=== PATIENT | female | born 2000 | race Caucasian/White ===

== ENCOUNTER 2022-03-30 20:02 | Emergency (ER) | payer OTHER, SELFPAY ==
[2022-03-30 20:02] VITALS: BP 123/78; PULSE 96; RESP 15; TEMP 36.7; O2SAT 100; BMI 20.8
[2022-03-30 20:20] LABS: Absolute Lymphocyte Count 2.17 X10^3/uL (0.83-4.51); Absolute Neutrophil Count 8.6 X10^3/uL (2.0-7.7); Basophil# 0.06 X10^3/uL; Basophil% 0.5 % (0-1); Eosinophil# 0.15 X10^3/uL; Eosinophils% 1.2 % (0-5); Hematocrit 36.8 % (37-47); Hemoglobin 11.3 g/dL (12.0-15.0); Lymphocyte # 2.17 X10^3/ul (0.83-4.51); Lymphocyte % 17.2 % (19-41); Mean Corp Hgb Conc 30.7 g/dL (32-36); Mean Corpuscular Hgb 21.3 pg (27.0-32.0); Mean Corpuscular Volume 69.3 fL (81-99); Mean Platelet Vol. 9.3 fl (6.2-12.0); Monocyte# 1.57 X10^3/uL; Monocyte% 12.5 % (0-10); NRBC Flagged by Analyzer 0 % (0-5); Neutrophil # 8.63 X10^3/uL (2.7-7.7); Neutrophil % 68.4 % (47-70); POSITIVE DIFFERENTIAL YES; Platelet Count 433 K/mm3 (150-450); RBC Distribution Width CV 17.8 % (11.6-14.6); Red Blood Count 5.31 M/mm3 (4.2-5.4); White Blood Count 12.6 K/mm3 (4.4-11.0)
[2022-03-30 20:22] LABS: Differential Indicated SCAN CRITERIA MET
[2022-03-30 20:30] LABS: Internal QC Validated? YES +Cl - CLEAR BKGD; Pregnancy, Serum, hCG Quali. NEGATIVE Negative
[2022-03-30 20:33] LABS: Anion Gap 6 (5-15); BUN 10 mg/dL (7-18); BUN/Creat Ratio 11.9 RATIO (10-20); Calcium,Total 9.4 mg/dL (8.5-10.1); Chloride 104 mmol/L (98-107); Creatinine, Serum 0.84 mg/dL (0.55-1.02); EST Glomerular Filtration Rate 92 mL/min (>60); Est Glom Filt Rate - Afr Amer 112 mL/min (>60); Estimated Creatinine Clearance 93.02 ml/min; Glucose 96 mg/dL (74-106); Sodium Level 137 mmol/L (136-145)
[2022-03-30 20:46] LABS: Differential Comment SCANNED
[2022-03-30 21:32] LABS: Mucous, Urine 0 SEEN /hpf (<or=2+); Red Blood Cells-Urine 0 SEEN /hpf (0-5)
[2022-03-30 21:39] LABS: Color, Urine Yellow (Yellow); Glucose, Dipstick Normal (Normal); Ketone-Dipstick Negative (Negative); Leukocyte Esterase-Dipstick 100 /ul (Negative); Nitrite-Dipstick Negative (Negative); Occult Blood-Urine 10 /ul (Negative); Protein-Dipstick 15 mg/dl (Negative); Specific Gravity, Urine 1.025 (1.002-1.030); Urine Bilirubin Dipstick Negative (Negative); Urine Clarity Clear (Clear); Urine Urobilinogen Normal (Normal)
--- NOTE | 2022-03-30 21:40 | EDS_ITS ---
HPI HPI - GI History of Present Illness Chief Complaint: Abd Pain Narrative Narrative: 21-year-old female presenting with right lower quadrant abdominal pain. She states her pain initially started on Tuesday as a dull mild ache. It is progressively gotten worse. She was able to work last night but states it was very painful. She states today she is not had a fever but she has had chills throughout the day. She has nausea without vomiting. She admits to diarrhea. No urinary or vaginal complaints. Patient states she has no medical problems. She is not on any long-term medications. She does not have any medication allergies. PFSH PFSH Medical History no medical history Home Medications amoxicillin 875 mg-potassium clavulanate 125 mg tablet 1 tab PO BID #28 tabs 03/30/22 [Rx Last Taken Unknown] ondansetron 4 mg disintegrating tablet 4 mg PO Q8H PRN nausea and vomiting #10 tabs 03/30/22 [Rx Last Taken Unknown] Allergy/AdvReac Type Severity Reaction Status Date / Time No Known Allergies Allergy Verified 03/30/22 20:05 Social History Smoking Status: Never smoker ROS ROS ED Constitutional Constitutional ED: Reports chills; Denies fever(s) or sweats Eyes Eyes: Denies blurry vision or change in vision ENT ENT ED: Denies ear pain or sore throat Cardiovascular Cardiovascular: Denies chest pain, palpitations or racing heartbeat Respiratory/Chest Respiratory/Chest: Denies cough, dyspnea or sputum Gastrointestinal Gastrointestinal: Reports abdominal pain, diarrhea and nausea; Denies constipation or vomiting Genitourinary Genitourinary ED: Denies dysuria, hematuria or urinary frequency Musculoskeletal Musculoskeletal: Denies arthralgias, myalgias or neck pain Integumentary Denies abscess, Abrasions or rash Neurologic Neurologic: Denies headache(s), paresthesias or weakness Psychiatric Psychiatric: Denies anxiety, depression, suicidal ideation or suicidal thoughts Endocrine Endocrinology: Denies polydipsia or polyuria EXAM Physical Exam Const Vital Signs: 03/30/22 20:02 03/30/22 22:32 Temperature 98.0 F Temperature Source Temporal Pulse Rate 96 Respiratory Rate 15 Blood Pressure 123/78 H 124/78 H Blood Pressure Mean 93 93 Pulse Ox 100 Oxygen Delivery Method Room Air Positive well nourished General Appearance ED: NAD; Negative for pallor HEENT Reports moist mucous membranes normocephalic and atraumatic Eyes PERRL and EOMs intact bilaterally Neck no lymphadenopathy Resp normal respiratory effort and clear to auscultation bilaterally Cardio regular rate and regular rhythm GI Palpation: tender RLQ Neuro CN's II-XII intact bilaterally Psych mental status grossly normal and thought process normal Skin General Skin Exam: Negative for jaundice or pallor MDM MDM MDM Narrative Medical decision making narrative: Patient presenting with right lower quadrant abdominal pain. She is tender over McBurney's point. She reports 3 days of pain progressively worse. Is now localizing to the right lower quadrant. She has had a fever but admits to chills. She has nausea without vomiting. CBC with differential was obtained to assess for infectious etiology. She does have a leukocytosis of 12.6 without a left shift. Hemoglobin is 11.3. Platelets normal at 433. BMP obtained to assess electrolyte and renal function needs to appear to be normal. Urinalysis appears to be normal. Serum hCG is negative. Given her elevated white blood cell count and right lower quadrant pain I will obtain a CT of the abdomen pelvis with IV contrast. This does show acute uncomplicated diverticulitis in the ascending colon. The CT was reviewed with general surgery and they agree this is not appendicitis. Patient was started on Augmentin and Zofran. She had a prescription filled he [facility] and she will take her first dose of Augmentin for she goes home. Given follow-up with Dr. Alvarez. Impression: 1. Nausea/vomiting 2. Leukocytosis 3. Acute diverticulitis Lab Data Labs: Laboratory Results - last 24 hr 03/30/22 03/30/22 03/30/22 20:15 20:15 20:15 WBC 12.6 H RBC 5.31 Hgb 11.3 L Hct 36.8 L MCV 69.3 L MCH 21.3 L MCHC 30.7 L RDW Std Deviation 43.0 RDW Coeff of Caren 17.8 H Plt Count 433 MPV 9.3 Immature Gran % (Auto) 0.200 Neut % (Auto) 68.4 Lymph % (Auto) 17.2 L [place] % (Auto) 12.5 H Eos % (Auto) 1.2 Baso % (Auto) 0.5 Absolute Neuts (auto) 8.6 H Absolute Lymphs (auto) 2.17 Nucleated RBC % 0 Differential Comment SCANNED Diff Path Review May foll Sodium 137 Potassium 4.0 Chloride 104 Carbon Dioxide 27.0 Anion Gap 6 BUN 10 Creatinine 0.84 Estim Creat Clear Calc 93.02 Est GFR (MDRD) Af Amer 112 Est GFR (MDRD) Non-Af 92 BUN/Creatinine Ratio 11.9 Glucose 96 Calcium 9.4 Serum , Qual NEGATIVE Urine Color Urine Clarity Urine pH Ur Specific [place] Urine Protein Urine Glucose (UA) Urine Ketones Urine Occult Blood Urine Nitrite Urine Bilirubin Urine Urobilinogen Ur Leukocyte Esterase Urine RBC Urine WBC Ur Squamous Epith Cells Urine Bacteria Urine Mucus 03/30/22 21:25 WBC RBC Hgb Hct MCV MCH MCHC RDW Std Deviation RDW Coeff of Caren Plt Count MPV Immature Gran % (Auto) Neut % (Auto) Lymph % (Auto) [place] % (Auto) Eos % (Auto) Baso % (Auto) Absolute Neuts (auto) Absolute Lymphs (auto) Nucleated RBC % Differential Comment Diff Path Review Sodium Potassium Chloride Carbon Dioxide Anion Gap BUN Creatinine Estim Creat Clear Calc Est GFR (MDRD) Af Amer Est GFR (MDRD) Non-Af BUN/Creatinine Ratio Glucose Calcium Serum , Qual Urine Color Yellow Urine Clarity Clear Urine pH 5.0 Ur Specific [place] 1.025 Urine Protein 15 H Urine Glucose (UA) Normal Urine Ketones Negative Urine Occult Blood 10 H Urine Nitrite Negative Urine Bilirubin Negative Urine Urobilinogen Normal Ur Leukocyte Esterase 100 H Urine RBC 0 SEEN Urine WBC 0-5 SEEN Ur Squamous Epith Cells 0-5 SEEN Urine Bacteria RARE Urine Mucus 0 SEEN Radiography Diagnostic Testing: Clinical Impression(s) from Imaging Studies Abdomen/Pelvis CT 03/30/22 22:06 IMPRESSION: Acute diverticulitis of the ascending colon. No evidence of perforation. Electronically Signed: Virgil Schneider MD at 22:47 EST , Discharge Plan Triage Chief Complaint: Abd Pain ED Provider: Mathew Day Dx/Rx/DC Orders Instructions: ED Diverticulitis Prescriptions: New amoxicillin-pot clavulanate 875-125 mg tablet 1 tab PO BID Qty: 28 0RF ondansetron 4 mg tablet,disintegrating 4 mg PO Q8H PRN (Reason: nausea and vomiting) Qty: 10 0RF Primary Care Provider: Jerad Valdez Referrals: Jerad Valdez DO [Primary Care Provider] - Friend,DO Chaim [Med Staff - Active Staff] - 3-5 Days Disposition Disposition: Home, Self Care
--- NOTE | 2022-03-30 22:06 | CT_ITS ---
INDICATION: abd pain EXAMINATION: CT ABDOMEN AND PELVIS WITH CONTRAST - CT Abdomen And Pelvis W/ Contrast Injection TECHNIQUE: Helically acquired images were obtained of the abdomen and pelvis following IV contrast. A radiation dose optimization technique was used for this scan. IV Contrast dosage and agent: 75 cc Isovue-370 Oral contrast: None. COMPARISON: None. FINDINGS: LOWER CHEST: Lung bases are clear. No cardiomegaly or pericardial effusion. LIVER: Homogeneous. No focal mass. GALLBLADDER AND BILIARY TREE: No calcified gallstones. Gallbladder contracted. No intra- or extrahepatic biliary ductal dilation. PANCREAS: No focal cystic or solid mass. SPLEEN: Normal size without focal cystic or solid mass. ADRENAL GLANDS: No nodules. KIDNEYS AND URETERS: Normal renal size and position. No hydronephrosis. PERITONEUM: No free air. Small amount of pelvic ascites. BOWEL: Normal appendix. No stomach or bowel distension. Retained radiodense material in a single diverticulum in the ascending colon with adjacent bowel wall thickening and inflammatory stranding. LYMPH NODES: No enlarged mesenteric or retroperitoneal lymph nodes. VESSELS: Aorta is non-dilated. URINARY BLADDER: Unremarkable. REPRODUCTIVE ORGANS: No pelvic masses. ABDOMINAL WALL: Fat-containing umbilical hernia. BONES: Unremarkable. CT/Abdomen/Pelvis W IV Cont ONLY IMPRESSION: Acute diverticulitis of the ascending colon. No evidence of perforation. Electronically Signed: Virgil Schneider MD at 22:47 EST ,
[2022-03-30 22:21] LABS: Squamous Epithelial Cells - UA 0-5 SEEN /hpf (5-10); White Blood Cells 0-5 SEEN /hpf (0-5)
[2022-03-30 22:22] LABS: Bacteria RARE /hpf (None Seen)
[2022-03-30] MEDS: Morphine 4 MG/ML Syringe IV (22:24)
[2022-03-30] MEDS: Ondansetron 4 MG/2 ML Vial IV (22:24)
[2022-03-30] MEDS: 0.9% Normal Saline 1,000 ML 999 ML IV (22:24)
[2022-03-30 22:32] VITALS: BP 124/78
[2022-04-01 09:24] LABS: Pathologist Review Reviewed
== END 2022-03-30 23:36 | disposition home or self-care (01) ==
PROVIDERS: Emergency Provider Student in an Organized Health Care Education/Training Program; PCP Pediatrics; Visit Provider Student in an Organized Health Care Education/Training Program
DX: K57.32 Diverticulitis of large intestine without perforation or abscess without bleeding (principal); D72.829 Elevated white blood cell count, unspecified; R11.2 Nausea with vomiting, unspecified
CPT/HCPCS: 74177; 80048; 81001; 84703; 85025; 96374; 96375; 99283; J7030; Q9967; J2405

== ENCOUNTER 2022-08-28 08:41 | Emergency (ER) | payer OTHER, SELFPAY ==
[2022-08-28 08:43] VITALS: BP 110/77; PULSE 111; RESP 18; TEMP 37.7; O2SAT 97; BMI 21.7
--- NOTE | 2022-08-28 08:50 | CT_ITS ---
STUDY: CT SOFT TISSUE NECK WITH CONTRAST REASON FOR EXAM: Female, 21 years old. throat pain, ro abscess RADIATION DOSAGE (If Supplied By Facility): CTDIvol = ( 10.61 ) mGy, DLP = ( 302.07 ) mGycm TECHNIQUE: The patient was scanned in a multi-detector CT scanner. High resolution transaxial imaging was performed following intravenous administration of IV 75mL Isovue-370. Sagittal and coronal images were reconstructed. Individualized dose optimization techniques were used for this CT. COMPARISON: None. FINDINGS: Normal bilateral parotid glands. Normal bilateral collarette separator spaces. Normal bilateral parapharyngeal spaces. Normal bilateral carotid spaces. Normal bilateral sublingual and submandibular glands and spaces. Normal visualized nasopharynx. Normal retropharyngeal space. Normal perivertebral space. Prominent lingual tonsils of the which are of heterogeneous decreased attenuation suggestive of tonsillitis. No definite loculated fluid collection to suggest peritonsillar abscess. The visualized tongue, tongue base and oropharynx are normal. Bilateral jugular lymphadenopathy at the level of the floor the mouth measuring 1.2 x 2.0 cm in the right and 1.5 x 2.2 cm on the left which is likely reactive. There is no demonstrated solid or cystic mass lesion. There is no abnormal contrast enhancement. Normal epiglottis, bilateral vallecula and hypopharynx. The pre-epiglottic and paraglottic adipose spaces are normal. Normal visualized bilateral piriform sinuses, aryepiglottic folds, vocal cords, and arytenoid-cricoid articulations. Normal subglottic trachea. Normal bilateral lobes of the thyroid gland. Normal visualized pulmonary apices. Normal visualized paranasal sinuses. Normal visualized cervical spine. CT/Soft Tissue Neck WITH Contrast IMPRESSION: Bilateral tonsillitis without definite peritonsillar abscess. Bilateral reactive jugular lymphadenopathy. Electronically Signed: Herman Main MD at 9:49 EDT ,
--- NOTE | 2022-08-28 08:52 | EX.ED.VIS.UR ---
HPI HPI - URI History of Present Illness Chief Complaint: Sore Throat Detail of Chief Complaint: Sore throat x3 days Informant: patient and parent Narrative Narrative: Patient presents with sore throat x3 days. She had a fever at home. Patient was seen at urgent care 3 days ago and had negative COVID and negative strep testing. Patient went back to urgent care today and had another strep screen that was negative. There was concern about the large tonsils and wanted patient evaluated the emergency department to rule out abscess. Patient complains of painful swallowing. She describes some mild ear pain bilaterally. Minimal cough. Patient denies sick contacts. ROS ROS ED Review of Systems ROS Unobtainable: other Constitutional Constitutional ED: Reports fever(s) and lethargy; Denies chills, sweats or weight loss Eyes Eyes: Denies blurry vision, change in vision or diplopia ENT ENT ED: Reports ear pain and sore throat; Denies rhinorrhea Cardiovascular Cardiovascular: Denies chest pain, orthopnea or racing heartbeat Respiratory/Chest Respiratory/Chest: Denies cough, dyspnea, dyspnea on exertion, orthopnea or sputum Gastrointestinal Gastrointestinal: Denies abdominal pain, diarrhea, nausea or vomiting Genitourinary Genitourinary ED: Denies dysuria, hematuria or urinary frequency Musculoskeletal Musculoskeletal: Denies arthralgias, back pain, myalgias or neck pain Integumentary Denies abscess, Abrasions or rash Neurologic Neurologic: Denies headache(s) or weakness Psychiatric Psychiatric: Denies anxiety, depression or suicidal thoughts Endocrine Endocrinology: Denies polydipsia, polyphagia or polyuria Hematologic/Lymphatic Hematologic/Lymphatic: Denies easy bleeding, easy bruising or lymphadenopathy Allergic/Immunologic Allergic/Immunologic ED: Denies mouth swelling, tongue swelling or urticaria PFSH PFSH Medical History no medical history Home Medications clindamycin HCl 300 mg capsule (Cleocin HCl) 300 mg PO Q6H #40 CAPSULES 08/28/22 [Rx Last Taken Unknown] Allergy/AdvReac Type Severity Reaction Status Date / Time No Known Allergies Allergy Verified 08/28/22 08:44 Surgical History no surgical history Social History Smoking Status: Never smoker EXAM Physical Exam Const Vital Signs: 08/28/22 08:43 08/28/22 10:07 Temperature 99.9 F H 98.0 F Temperature Source Oral Temporal Pulse Rate 111 H 100 Respiratory Rate 18 18 Blood Pressure 110/77 103/56 L Blood Pressure Mean 88 71 Pulse Ox 97 100 Oxygen Delivery Method Room Air Room Air Positive well nourished and well developed General Appearance ED: well developed and NAD HEENT Reports TM's clear and moist mucous membranes HEENT Narrative: Patient has diffuse pharyngeal erythema with enlarged tonsils with exudates bilaterally left tonsil larger than right. Uvula appears to be in the midline. No trismus on exam. Patient has some mild posterior adenopathy. normocephalic and atraumatic; Negative for trauma or tenderness Tympanic Membrane ED: Yes TM's clear Eyes PERRL and EOMs intact bilaterally General Eye ED: Negative for pale conjunctiva or scleral icterus Neck no lymphadenopathy, supple and no JVD General: Negative for tenderness Chest Wall inspection of chest normal and palpation of chest normal Chest: Negative for tenderness Resp normal respiratory effort and clear to auscultation bilaterally Effort and Inspection: Negative for respiratory distress or pain with movement Auscultation: Negative for rhonchi, wheezes or diminished lung sounds Cardio regular rate, regular rhythm, S1 normal heart sound, S2 normal heart sound and no murmurs Peripheral Pulses: pulses 2+ throughout GI normal to inspection, nondistended, normoactive bowel sounds, soft to palpation, non-tender, non-distended and no masses Back/Spine no CVA tenderness and no thoracic nor lumbar tenderness Extremity normal to inspection General Extremety ED: Negative for edema General Extremity: Negative for edema Neuro oriented x3, CN's II-XII intact bilaterally, no sensory deficits noted and gait normal Sensorium / Orientation: awake, alert, oriented to person, oriented to place and oriented to time Motor Exam: strength 5/5 throughout and strength abnormal Psych mental status grossly normal Skin no rashes or lesions noted and no wounds MDM MDM MDM Narrative Medical decision making narrative: Patient presents with significant tonsillitis with symptoms x3 days. She has been seen in urgent care twice now and has had 2 negative strep screens and a negative COVID test. Patient with fever. In the differential would be mono versus peritonsillar abscess versus retropharyngeal abscess. Clinically she does not have trismus and she is able to swallow her own secretions. IV line established. CBC with differential obtained showed a white count of 17.8 with a hemoglobin 11.5 and platelet count of 240. Chemistries unremarkable. Monotest was negative. I did send off a throat culture. Patient was given clindamycin 600 mg IV. I did obtain a CT scan of the soft tissue neck with IV contrast that showed evidence of tonsillitis and reactive lymphadenopathy but no evidence of abscess. Patient will be referred to ENT for follow-up. I will start her on clindamycin. Advised to return if difficulty swallowing or condition worsen anyway. Patient to use ibuprofen for discomfort. I did explain to them that this could still be mono although she is only had symptoms for 3 days mono may not turn positive for over a week. Lab Data Labs: Laboratory Results - last 24 hr 08/28/22 08/28/22 08/28/22 09:05 09:05 09:05 WBC 17.8 H RBC 4.45 Hgb 11.5 L Hct 36.9 L MCV 82.9 MCH 25.8 L MCHC 31.2 L RDW Std Deviation 44.8 H RDW Coeff of Caren 15.0 H Plt Count 240 MPV 9.3 Immature Gran % (Auto) 1.000 H Neut % (Auto) 78.2 H Lymph % (Auto) 6.4 L [place] % (Auto) 13.1 H Eos % (Auto) 0.8 Baso % (Auto) 0.5 Absolute Neuts (auto) 13.9 H Absolute Lymphs (auto) 1.13 Nucleated RBC % 0 Differential Comment SCANNED Diff Path Review May foll Sodium 137 Potassium 3.9 Chloride 106 Carbon Dioxide 27.0 Anion Gap 4 L BUN 9 Creatinine 0.69 Estim Creat Clear Calc 113.24 Est GFR (MDRD) Af Amer 139 Est GFR (MDRD) Non-Af 115 BUN/Creatinine Ratio 13.0 Glucose 100 Calcium 8.8 Monoscreen Negative Radiography Diagnostic Testing: Clinical Impression(s) from Imaging Studies Soft Tissue Neck CT 08/28/22 08:50 IMPRESSION: Bilateral tonsillitis without definite peritonsillar abscess. Bilateral reactive jugular lymphadenopathy. Electronically Signed: Herman Main MD at 9:49 EDT , Discharge Plan Triage Chief Complaint: Sore Throat ED Provider: Ungur,Remus Dx/Rx/DC Orders Clinical Impression: Acute tonsillitis Instructions: ED Tonsillitis Prescriptions: New clindamycin HCl [Cleocin HCl] 300 mg capsule 300 mg PO Q6H Qty: 40 0RF Primary Care Provider: Jerad Valdez Referrals: Jerad Valdez DO [Primary Care Provider] - Toby Stanley MD [Med Staff - Active Staff] - 5-7 Days Disposition Disposition: Home, Self Care
[2022-08-28] MEDS: 0.9% Normal Saline 1,000 ML 1000 ML IV (09:09)
[2022-08-28] MEDS: Ketorolac 30 MG/ML Syringe IV (09:09)
[2022-08-28] MEDS: dexAMETHasone 10 MG/ML Vial IV (09:10)
[2022-08-28 09:16] LABS: Absolute Lymphocyte Count 1.13 X10^3/uL (0.83-4.51); Absolute Neutrophil Count 13.9 X10^3/uL (2.0-7.7); Basophil# 0.08 X10^3/uL; Basophil% 0.5 % (0-1); Eosinophil# 0.14 X10^3/uL; Eosinophils% 0.8 % (0-5); Hematocrit 36.9 % (37-47); Hemoglobin 11.5 g/dL (12.0-15.0); Lymphocyte # 1.13 X10^3/ul (0.83-4.51); Lymphocyte % 6.4 % (19-41); Mean Corp Hgb Conc 31.2 g/dL (32-36); Mean Corpuscular Hgb 25.8 pg (27.0-32.0); Mean Corpuscular Volume 82.9 fL (81-99); Mean Platelet Vol. 9.3 fl (6.2-12.0); Monocyte# 2.33 X10^3/uL; Monocyte% 13.1 % (0-10); NRBC Flagged by Analyzer 0 % (0-5); Neutrophil # 13.91 X10^3/uL (2.7-7.7); Neutrophil % 78.2 % (47-70); POSITIVE DIFFERENTIAL YES; Platelet Count 240 K/mm3 (150-450); RBC Distribution Width SD 44.8 fl (35.1-43.9); Red Blood Count 4.45 M/mm3 (4.2-5.4); White Blood Count 17.8 K/mm3 (4.4-11.0)
[2022-08-28 09:24] LABS: Anion Gap 4 (5-15); BUN 9 mg/dL (7-18); Calcium,Total 8.8 mg/dL (8.5-10.1); Chloride 106 mmol/L (98-107); Creatinine, Serum 0.69 mg/dL (0.55-1.02); EST Glomerular Filtration Rate 115 mL/min (>60); Est Glom Filt Rate - Afr Amer 139 mL/min (>60); Estimated Creatinine Clearance 113.24 ml/min; Glucose 100 mg/dL (74-106); Potassium 3.9 mmol/L (3.5-5.1); Sodium Level 137 mmol/L (136-145)
[2022-08-28 09:26] LABS: Differential Indicated SCAN CRITERIA MET
[2022-08-28 09:39] LABS: Internal QC Validated? YES +Cl - CLEAR BKGD; Monotest Negative (Negative)
[2022-08-28 09:54] LABS: Differential Comment SCANNED
[2022-08-28 10:07] VITALS: BP 103/56; PULSE 100; RESP 18; TEMP 36.7; O2SAT 100
[2022-08-28] MEDS: Clindamycin 600 MG/50 ML BAG 100 MG IV (10:51)
[2022-08-28 11:19] VITALS: BP 111/66; PULSE 107; RESP 16; O2SAT 99
[2022-08-28 11:38] VITALS: BP 118/68; PULSE 95; RESP 18; O2SAT 96
[2022-08-30 12:45] LABS: Pathologist Review Reviewed
== END 2022-08-28 11:41 | disposition home or self-care (01) ==
PROVIDERS: Emergency Provider Emergency Medicine; PCP Pediatrics; Visit Provider Emergency Medicine
DX: J03.90 Acute tonsillitis, unspecified (principal)
CPT/HCPCS: 70491; 80048; 85025; 86308; 87070; 87077; 96361; 96365; 96375; 99284; J7030; J7050; Q9967; A4216